=== PATIENT | male | born 1945 | race Caucasian/White ===

== ENCOUNTER 2019-04-20 19:47 | Emergency (ER) | payer OTHER, MEDICAID ==
[~2019-04-20] VITALS: Ht 182.9 cm; Wt 81.6 kg
[2019-04-20 19:57] VITALS: BP_SYST 127
--- NOTE | 2019-04-20 20:02 | NUR ---
Placed in room 01 . Placed on campus monitor, blood pressure machine and pulse oximeter. To gown for exam. Side rails up. Report given to Reuben UNDERWOOD.
--- NOTE | 2019-04-20 20:16 | NUR ---
MOVED TO ROOM 5. S[facility] HERE FROM [facility] FOR GENERALIZED WEAKNESS,POOR APPETITE AND BILATERAL LEG SWELLING. ER-MD AT BEDSIDE TO EVALUATE PT.
--- NOTE | 2019-04-20 20:25 | NUR ---
GAUGE 20 IV LINE ESTABLISHED TO THE LEFT HAND. BLOOD ALSO DRAWN AND SENT TO THE LAB.
--- NOTE | 2019-04-20 20:29 | NUR ---
PORTABLE CXR DONE.
--- NOTE | 2019-04-20 20:35 | NUR ---
12 LEAD EKG DONE. REPORT TO BE REVIEWED BY SIMI-.
[2019-04-20 20:36] LABS: BASOPHILS # (AUTO) 0.1 K/uL (0.0-0.2); BASOPHILS % (AUTO) 0.8 % (0.0-2.0); EOSINOPHILS # (AUTO) 0.4 K/uL (0.0-0.4); EOSINOPHILS % (AUTO) 3.4 % (0.0-4.0); HEMATOCRIT 39.6 % (36-54); HEMOGLOBIN 12.9 g/dL (14.0-18.0); LYMPHOCYTES # (AUTO) 2.4 K/uL (1.0-5.5); LYMPHOCYTES % (AUTO) 19.1 % (20.5-51.5); MEAN CORPUSCULAR HEMOGLOBIN 31 pg (27-31); MEAN CORPUSCULAR HGB CONC 33 % (32-36); MEAN CORPUSCULAR VOLUME 95 fL (79.0-98.0); MONOCYTES # (AUTO) 1.3 K/uL (0.0-1.0); MONOCYTES % (AUTO) 10.1 % (1.7-9.3); NEUTROPHILS # (AUTO) 8.4 K/uL (1.8-7.7); NEUTROPHILS % (AUTO) 66.6 % (40.0-70.0); PLATELET COUNT (AUTO) 336 K/uL (130-430); RED BLOOD CELL COUNT(AUTO) 4.19 MIL/uL (4.2-6.2); RED CELL DISTRIBUTION WIDTH 14.6 % (9.0-15.0); WHITE BLOOD COUNT (AUTO) 12.6 K/uL (4.8-10.8)
--- NOTE | 2019-04-20 20:40 | NUR ---
WENT FOR CT SCAN OF ABDOMEN AND PELVIS VIA [facility].
--- NOTE | 2019-04-20 20:44 | NUR ---
Patient brought to CT scan via gurney accompanied by pathology laboratory technologist.
[2019-04-20 20:49] LABS: ANION GAP 6 (5-15); CALCIUM 9.1 mg/dL (8.4-11.0); CHLORIDE 103 mmol/L (98-107); CREATININE 0.94 mg/dL (0.55-1.30); GLUCOSE 228 mg/dL (70-99); POTASSIUM 3.9 mmol/L (3.5-5.1); SODIUM SERUM 139 mmol/L (136-145); UREA NITROGEN, BLOOD 26 mg/dL (8-21)
--- NOTE | 2019-04-20 20:54 | NUR ---
BACK FROM CT SCAN.
[2019-04-20 20:55] LABS: ALANINE AMINOTRANSFERASE 19 U/L (12-78); ASPARTATE AMINOTRANSFERASE 14 U/L (10-37); TOTAL BILIRUBIN 0.2 mg/dL (0.0-1.0)
[2019-04-20 21:12] LABS: PROTHROMBIN TIME 10.1 SECS (9.5-12.5)
[2019-04-20] MEDS ORDERED: NS 500 ML IV ONE (21:15)
[2019-04-20] MEDS ORDERED: NACL 0.9% 2,000 ML IV ONE (21:15)
--- NOTE | 2019-04-20 21:24 | NUR ---
1ST OF 2.5 LITER NORMAL SALINE BOLUS STARTED.
--- NOTE | 2019-04-20 23:31 | NUR ---
URINE DIPSTICK DONE. REPORT NOTED BY COLE. SPECIMEN SENT TO THE LAB.
[2019-04-20 23:42] LABS: BILIRUBIN,URINE NEGATIVE (NEGATIVE); BLOOD, URINE NEGATIVE (NEGATIVE); CLARITY/URINE SL CLOUDY (CLEAR); COLOR,URINE YELLOW (YELLOW); GLUCOSE,URINE TRACE (NEGATIVE); KETONES,URINE NEGATIVE (NEGATIVE); LEUKOCYTE ESTERASE ,URINE 3+ (NEGATIVE); NITRITE, URINE POSITIVE (NEGATIVE); PH,URINE 5.5 (5.0-8.0); PROTEIN URINE NEGATIVE (NEGATIVE); UROBILINOGEN,URINE 0.2 (0.2-1.0)
[2019-04-20 23:45] LABS: BACTERIA,URINE MANY /HPF (None Seen); RBC,URINE 0-3 /HPF (0-3); WBC,URINE >100 /HPF (0-3)
[2019-04-20] MEDS ORDERED: LEVOFLOXACIN 500 MG/D5W 100 ML IV ONE (23:45)
--- NOTE | 2019-04-21 00:45 | NUR ---
[facility] HERE TO PICK UPPT. REPORT GIVEN TO EMT'S.
--- NOTE | 2019-04-21 00:51 | NUR ---
LEVAQUIN 500 MG PO GIVEN ORDERED.
[2019-04-21] MEDS ORDERED: LEVOFLOXACIN 500 MG TABLET PO ONE (01:00)
--- NOTE | 2019-04-21 01:02 | NUR ---
DISCHARGED STABLE. PRESCRIPTION,VERBAL AND WRITTEN AFTERCARE INSTRUCTIONS GIVEN TO PT AND EMT'S. VERBALIZED UNDERSTANDING. LEFT UNIT VIA AMBULANCE GURNEY.
[2019-04-21] MEDS ORDERED: LEVOFLOXACIN 500 MG TABLET ONE (01:04)
[2019-04-21 01:11] VITALS: BP_SYST 113
== END 2019-04-21 01:02 | disposition home or self-care (01) ==
LOC: SED 19:47
DX: N39.0 Urinary tract infection, site not specified (principal); M25.561 Pain in right knee; I10 Essential (primary) hypertension; E11.9 Type 2 diabetes mellitus without complications; F41.9 Anxiety disorder, unspecified
CPT/HCPCS: 36415; 71045; 74176; 80053; 81000; 83605; 83880; 84484; 85025; 85610; 85730; 87040; 87081; 87086; 93005; 99285; J7030; J7040